=== PATIENT | male | born 1985 | race Two or more races ===

== ENCOUNTER 2016-12-19 23:05 | Emergency (ER) | payer MEDICAID ==
[2016-12-19] MEDS ORDERED: AMOX/CLAV 875 MG/125 MG TABLET PO ONE (23:06)
[2016-12-19] MEDS ORDERED: IPRATROPIUM 0.2 MG/ML NEB INH ONE (23:12)
[2016-12-19] MEDS ORDERED: ALBUTEROL NEB 2.5 MG/3 ML INH ONE ×2 (23:12→23:36)
[2016-12-19] MEDS ORDERED: IPRATROPIUM/ALBUTEROL 3 ML NEB INH ONE (23:15)
[2016-12-19] MEDS ORDERED: predniSONE 20 MG TABLET PO STA (23:23)
[2016-12-19] MEDS ORDERED: predniSONE 20 MG TABLET ONE (23:38)
[2016-12-19] MEDS ORDERED: ALBUTEROL NEB 2.5 MG/3 ML INH STA (23:43)
[2016-12-19] MEDS ORDERED: ALBUTEROL 8 GM INHALER INH STA (23:43)
[2016-12-19] MEDS ORDERED: IPRATROPIUM/ALBUTEROL 3 ML NEB INH STA (23:43)
[2016-12-20] MEDS ORDERED: ALBUTEROL NEB 2.5 MG/3 ML INH ONE (01:56)
[2016-12-20] MEDS ORDERED: ALBUTEROL NEB 2.5 MG/3 ML INH STA (02:04)
[2016-12-20] MEDS ORDERED: ALBUTEROL 8 GM INHALER INH STA (03:35)
[2016-12-20] MEDS ORDERED: ALBUTEROL 8 GM INHALER INH ONE (03:46)
== END 2016-12-20 04:05 | disposition home or self-care (01) ==
DX: J45.909 Unspecified asthma, uncomplicated (principal); F17.200 Nicotine dependence, unspecified, uncomplicated
CPT/HCPCS: 94640; 94664; 99283; 99284; A9270; J7512; J7613; J7620

== ENCOUNTER 2017-01-27 13:46 | Emergency (ER) | payer MEDICAID ==
[2017-01-27] MEDS: ALBUTEROL NEB 2.5 MG/3 ML INH STA ×2 (14:00→15:00)
[2017-01-27] MEDS ORDERED: ALBUTEROL NEB 2.5 MG/3 ML INH ONE ×2 (14:04→14:37)
--- NOTE | 2017-01-27 14:07 | ED Physician Documentation ---
PD HPI DYSPNEA - Stated complaint Stated Complaint: SOA - Chief complaint Chief Complaint: Resp - History obtained from History obtained from: Patient - History of Present Illness Timing - onset: How many days ago (several) Timing - onset during: Rest Timing - duration: Days Timing - details: Gradual onset Pain level max: 0 Pain level now: 0 Inciting event(s): URI, Other (hasn't used his inhaler since yesterday) Improved by: O2, Inhaler/neb Worsened by: Exertion, Laying flat, Coughing Associated symptoms: Cough, Wheezing. No: Fever, Hemoptysis, Chest pain / discomfort Similar symptoms before: Diagnosis (asthma) Recently seen: Not recently seen Review of Systems Constitutional: denies: Fever, Chills Throat: denies: Sore throat GI: denies: Nausea, Vomiting, Diarrhea Skin: denies: Rash Musculoskeletal: denies: Neck pain, Back pain Neurologic: denies: Focal weakness, Numbness, Headache PD PAST MEDICAL HISTORY - Past Medical History Past Medical History: Yes Respiratory: Asthma - Past Surgical History Past Surgical History: No - Present Medications Home Medications: Ambulatory Orders Medication Instructions Recorded Confirmed Albuterol Sulf [Ventolin Hfa 2 puffs INH Q4HR PRN #1 inhaler 12/20/16 Inhaler] Albuterol Sulf [Ventolin Hfa 2 puffs INH Q4HR PRN #1 inhaler 01/27/17 Inhaler] Prednisone 40 mg PO DAILY #10 tablet 01/27/17 - Allergies Allergies/Adverse Reactions: Allergies Allergy/AdvReac Type Severity Reaction Status Date / Time No Known Drug Allergies Allergy Verified 12/19/16 23:19 - Social History Does the pt smoke?: Yes Smoking Status: Current every day smoker Does the pt drink ETOH?: Yes Does the pt have substance abuse?: No - Immunizations Immunizations are current?: Yes - POLST Patient has POLST: No PD ED PE NORMAL - Vitals Vital signs reviewed: Yes - General General: Alert and oriented X 3, No acute distress, Well developed/nourished - HEENT HEENT: PERRL, Moist mucous membranes - Neck Neck: Supple, no meningeal sign - Cardiac Cardiac: RRR - Respiratory Respiratory: Other (Mild respiratory distress with intercostal retractions. Diminished breath sounds bilaterally. Wheezing bilaterally) - Abdomen Abdomen: Soft, Non tender, Non distended - Derm Derm: Warm and dry, No rash - Extremities Extremities: No edema, No calf tenderness / cord - Neuro Neuro: Alert and oriented X 3 - Psych Psych: Normal mood, Normal affect Results - Vitals Vitals: Vital Signs - 24 hr 01/27/17 01/27/17 01/27/17 14:00 14:02 15:00 Temperature 37.1 C Heart Rate 123 H 131 H 106 H Respiratory 21 36 H 23 Rate Blood Pressure 117/77 O2 Saturation 96 01/27/17 15:28 Temperature Heart Rate 121 H Respiratory 18 Rate Blood Pressure 127/82 H O2 Saturation 95 Oxygen O2 Source Room air - Rads (name of study) cxr Radiology: Prelim report reviewed, EMP read contemporaneously, See rad report ( Mild airway inflammation without focal pneumonia. ) PD MEDICAL DECISION MAKING - ED course Complexity details: reviewed results, re-evaluated patient, considered differential, d/w patient ED course: Patient presents to the emergency department with what appears to be a viral URI with asthma exacerbation. Feels better after nebulizer treatment and steroids. No hypoxia. No respiratory distress. Did have some persistent tachycardia, likely related to the nebulizer treatments. No evidence of pulmonary embolus clinically. No risk factors. No calf tenderness or edema. Patient is well-appearing, nontoxic. No evidence of sepsis. Patient counseled regarding signs and symptoms for which I believe and urgent re-evaluation would be necessary. Patient with good understanding of and agreement to plan and is comfortable going home at this time This document was made in part using voice recognition software. While efforts are made to proofread this document, sound alike and grammatical errors may occur. Departure - Departure Disposition: 01 Home, Self Care Clinical Impression: Asthma Qualifiers: Asthma severity: unspecified severity Asthma complication type: with acute exacerbation Qualified Code(s): J45.901 - Unspecified asthma with (acute) exacerbation Upper respiratory tract infection Qualifiers: URI type: unspecified viral URI Qualified Code(s): J06.9 - Acute upper respiratory infection, unspecified Condition: Good Instructions: ED Reactive Airway Disease Follow-Up: your,doctor in 1 week [Other] Prescriptions: Albuterol Sulf [Ventolin Hfa Inhaler] 2 puffs INH Q4HR PRN #1 inhaler PRN Reason: Wheezing Prednisone 40 mg PO DAILY #10 tablet Comments: Return if you worsen. This should improve over the next week. Discharge Date/Time: 01/27/17 15:40
[2017-01-27] MEDS ORDERED: predniSONE 20 MG TABLET ONE (14:20)
[2017-01-27] MEDS: predniSONE 20 MG TABLET PO STA (14:22)
--- NOTE | 2017-01-27 15:14 | XRAY Preliminary Report ---
Exam: XR Chest 2 View PA/LAT IMPRESSION: Mild airway inflammation without focal pneumonia. [facility] SITE ID: [id number]
--- NOTE | 2017-01-27 15:18 | XRAY Report ---
EXAM: CHEST RADIOGRAPHY EXAM DATE: 01/27/2017 02:55 PM. CLINICAL HISTORY: Cough, wheezing. COMPARISON: None. TECHNIQUE: 2 views. FINDINGS: Lungs/Pleura: Mild perihilar airway thickening. No consolidative process or focal pneumonia. Negative for pleural effusion and pneumothorax. Mediastinum: Heart and mediastinal contours are unremarkable. Other: None. IMPRESSION: Mild airway inflammation without focal pneumonia. [facility] Referring Provider Line: [phone] SITE ID: [id number]
[2017-01-27 15:31] VITALS: BP 127/82
== END 2017-01-27 15:40 | disposition home or self-care (01) ==
LOC: ED 13:46
DX: J45.901 Unspecified asthma with (acute) exacerbation (principal); J06.9 Acute upper respiratory infection, unspecified; F17.200 Nicotine dependence, unspecified, uncomplicated
CPT/HCPCS: 71020; 94640; 99283; 99284

== ENCOUNTER 2017-02-19 19:43 | Emergency (ER) | payer MEDICAID ==
[2017-02-19] MEDS ORDERED: IPRATROPIUM/ALBUTEROL 3 ML NEB INH PRN (19:50)
[2017-02-19] MEDS ORDERED: IPRATROPIUM/ALBUTEROL 3 ML NEB INH STA (19:52)
[2017-02-19] MEDS ORDERED: methylPREDNISolone SUCCINATE 125 MG/2 ML VIAL IVP STA (19:52)
[2017-02-19] MEDS ORDERED: TERBUTALINE 1 MG/ML VIAL SUBQ ONE (19:52)
[2017-02-19] MEDS ORDERED: IPRATROPIUM/ALBUTEROL 3 ML NEB INH ONE ×2 (19:53→19:58)
[2017-02-19] MEDS ORDERED: methylPREDNISolone SUCCINATE 125 MG/2 ML VIAL IVP ONE (19:56)
[2017-02-19] MEDS ORDERED: ALBUTEROL NEB 2.5 MG/3 ML INH STA (21:40)
[2017-02-19] MEDS ORDERED: ALBUTEROL NEB 2.5 MG/3 ML INH ONE (21:53)
[2017-02-19] MEDS ORDERED: ALBUTEROL 8 GM INHALER INH STA (23:23)
[2017-02-19] MEDS ORDERED: ALBUTEROL 8 GM INHALER INH ONE (23:28)
== END 2017-02-19 23:55 | disposition home or self-care (01) ==
DX: J45.909 Unspecified asthma, uncomplicated (principal); Z87.891 Personal history of nicotine dependence
CPT/HCPCS: 94640; 96372; 96374; 99284; 99291; A9270; J7613; J7620